=== PATIENT | female | born 1995 | race Caucasian/White ===

== ENCOUNTER 2023-02-05 15:40 | Emergency (ER) | payer MEDICAID, SELFPAY ==
[2023-02-05 15:51] VITALS: BP 132/90; PULSE 72; RESP 26; TEMP 36.3; O2SAT 99; BMI 34.6
--- NOTE | 2023-02-05 16:25 | ED.SOB ---
HPI - SOB/Dyspnea General Time Seen by Provider: 16:25 Date Seen: 02/05/23 Chief Complaint: Shortness of Breath/Dyspnea Stated Complaint: Difficulty breathing Time Seen by Provider: 02/05/23 16:15 Source: patient and RN notes reviewed Mode of arrival: ambulatory Limitations: no limitations History of Present Illness HPI Narrative: This 27-year-old female transitioning to male patient is coming in with chest pain throughout the sternal area associated with breathing. He feels short of breath. He was coming from a wedding in [place], started to feel short of breath and did not feel like he could make it home to his inhaler. He believes he was given inhaler after COVID or possibly for allergies. He states he has been having symptoms of this nature for months now. Does believe he likely has underlying seasonal allergies but they have never been this bad. Has not been diagnosed with asthma. Was sick with cough and cold symptoms about 3 weeks ago but reportedly improved. He does wear a binder on his chest every day but has been doing this since 2017, does wonder if this could have precipitated any issues. No fevers. Does endorse some heartburn but does not take any medicine for this. Does feel that the breathing does worsen at night. Does not smoke cigarettes but does smoke cannabis. MD elicited complaint: shortness of breath, pain with inspiration and chest pain Related Data Home oxygen amount: none Home Medications Medication Instructions Recorded Confirmed testosterone (AndroGel) 20.25 mg topical QAM 02/05/23 02/05/23 Review of Systems Status of ROS: Reports: 6 or more systems reviewed and unremarkable except as noted in History and below PFSH PFSH Social History Smoking Status: Never smoker Do you use any of these nicotine containing products: None How often do you have a drink containing alcohol: never How often do you have six or more drinks on one occasion: Never AUDIT-C Alcohol total score: 0 Non-prescribed substance use: marijuana (any form) Exam Const: Vital Signs, click to edit/add: Vital Signs - 24 hr 02/05/23 15:51 02/05/23 17:07 Temperature 97.4 F L Pulse Rate [Right Pulse Oximeter] 72 Respiratory Rate 26 H Blood Pressure [Le ft Upper Arm] 132/90 H Pulse Oximetry 99 98 Oxygen Delivery Me thod Room Air He is a 27-year-old transitioning female to male patient that is seen in exam room 7. He does seem mildly anxious, mild tachypnea but voice is normal, able to speak in complete sentences, no hoarseness. No stridor, no wheezing that is audible. Sclera clear, symmetrical facial function. Neck supple, no masses, no jugular venous distension noted. Is able to sit up, lungs are clear, good air entry, no wheezing or crackles. CV regular rate and rhythm, no murmur, normal S1 and S2, no S3 or S4. Abdomen is soft, no rebound or guarding, no organomegaly, nontender and nondistended. No reproducible chest wall tenderness. Documenting provider has reviewed patient's vital signs: yes Course Course ED Course: This is a patient that certainly could have underlying airway disease such as asthma. Did recently have cough and cold symptoms, does wear a binder, could have secondary bacterial pneumonia setting in. Right now, patient is hemodynamically stable, will have nursing staff apply pulse oximetry so we can watch oxygenation, initial O2 sats are excellent on arrival. Will consider other etiologies such as possibly cardiac, certainly reflux could be contributing here as well. Will have nursing staff get an EKG. Will get a full complement of labs and will do a D-dimer. Will have patient try DuoNeb and see if he gets any relief from that. Reevaluation(s) Time of Reevaluation #1: 17:57 Reevaluation #1: Reviewed with patient that we are just awaiting the D-dimer result. If it comes back elevated, will proceed with chest CT PE protocol. Otherwise, reviewed that all other labs including troponin, CBC, chemistries are normal. The venous blood gas actually supported hyperventilation. They note that he felt better after the DuoNeb. Reauscultation of the lungs reveals same findings as before, do not hear any improved her better air entry. Patient still has the same lung exam as before the DuoNeb but does notably feel better. Did review with them that they should really consider doing further testing with formal pulmonary function testing to see if there really is asthma. If there is asthma, would be a candidate for preventative medication. Patient did bring up that his primary had prescribed Advair and did not start it. Vital Signs Vital signs: Initial Vital Signs Temperature 97.4 F L 02/05/23 15:51 Temperature Source Temporal Artery Scan 02/05/23 15:51 Pulse Rate 72 10/13/23 15:51 Pulse Rhythm Regular 02/05/23 15:51 Respiratory Rate 26 H 02/05/23 15:51 Blood Pressure 132/90 H 02/05/23 15:51 Blood Pressure Mean 104 02/05/23 15:51 Blood Pressure Position Sitting 02/05/23 15:51 Pulse Oximetry 99 02/05/23 15:51 Oxygen Delivery Method Room Air 02/05/23 15:51 Vital Signs Temperature 97.4 F L 02/05/23 15:51 Pulse Rate 72 02/05/23 15:51 Respiratory Rate 26 H 02/05/23 15:51 Blood Pressure 132/90 H 02/05/23 15:51 Pulse Oximetry 99 02/05/23 15:51 Oxygen Delivery Method Room Air 02/05/23 15:51 Temperature 97.4 F L 02/05/23 15:51 Pulse Rate 72 02/05/23 15:51 Respiratory Rate 26 H 02/05/23 15:51 Blood Pressure 132/90 H 02/05/23 15:51 Pulse Oximetry 98 02/05/23 17:07 Oxygen Delivery Method Room Air 02/05/23 15:51 MDM - SOB/Dyspnea Lab Data Attestation: I reviewed the patient's lab results. Labs: Lab Results 02/05/23 Range/Units 16:45 WBC 7.30 (4.50-11.00) K/uL RBC 4.71 (4.00-5.20) m/uL Hgb 13.9 (12.0-16.0) gm/dL Hct 40.9 (33.0-51.0) % MCV 87 (80-100) fL MCH 30 (26-34) pg MCHC 34 (32-36) gm/dL RDW Coeff of Lilia 12.1 (11.5-15.5) % Plt Count 383 (140-440) K/uL Neut % (Auto) 56.0 (42.0-72.0) % Lymph % (Auto) 31.1 (20-44) % Pike % (Auto) 7.7 (0.0-11.0) % Eos % (Auto) 4.1 (0.0-7.0) % Baso % (Auto) 1.0 (0.0-3.0) % Neut # (Auto) 4.09 (1.7-7.0) K/uL Lymph # (Auto) 2.27 (0.90-2.90) K/uL Pike # (Auto) 0.60 (0.00-0.90) K/UL Eos # (Auto) 0.30 (0.00-0.50) K/uL Baso # (Auto) 0.07 (0.00-0.30) K/uL Abs Immat Gran (auto) 0.01 (0.00-0.30) K/uL Imm/Tot Granulo (auto) 0.1 % D-Dimer Quant (PE/DVT) < 0.27 (0.00-0.50) ug/ml VBG pH 7.454 H (7.32-7.43) VBG pCO2 36 L (40-50) mmHG VBG pO2 29.4 (25-47) mmHG VBG HCO3 25 (21-28) mmol/L Sodium 138 (135-149) mmol/L Potassium 3.6 (3.6-5.1) mmol/L Chloride 106 (96-114) mmol/L Carbon Dioxide 23 (20-32) mmol/L Anion Gap 9 (7-15) mEq/L BUN 12 (5-24) mg/dL Creatinine 0.7 (0.5-1.5) mg/dL Estimated Creat Clear 97.17 Estimated GFR 123 ml/min Glucose 72 (60-115) mg/dL Calcium 9.2 (8.4-10.6) mg/dL C-Reactive Protein 0.9 (0.5-1.0) mg/dL POC Troponin I 0.00 L (0.01-0.04) ng/ml Imaging Data Chest x-ray: Attestation: I have reviewed the pertinent imaging results. My impression: No acute pathology on my preliminary review of this chest x-ray, await Radiology over-read. Radiologist's impression: Patient: JACOBY GLASS Facility:?[facility] Patient ID:?[id number] Site Patient ID:?[id number]. Site :?[id number] Study:?XRay Chest 2V-02/05/2023 5:15:29 PM Ordering Physician:Steff Lambert Final Report: INDICATION: sob, dyspnea TECHNIQUE: Chest 2 views. COMPARISON: None. FINDINGS: Cardiovascular and mediastinum: Heart size and vasculature are normal in caliber and appearance. Lungs and pleural spaces: Lungs are clear. No sign of infiltrate. No sign of pleural effusion. No pneumothorax. Bones and soft tissues: No significant findings. IMPRESSION: No evidence of acute cardiopulmonary process. Dictated by Jarvis Roman MD @ 02/05/2023 5:44:35 PM (Electronic Signature) ECG Data Attestation: I personally reviewed and interpreted this ECG as follows: (Sinus rhythm, 65 beats per minute. No ischemic change, some artifact. QT corrected 420 milliseconds.) ECG interpretation date: 02/05/23 ECG interpretation time: 16:38 Prior ECG tracings: not available for review Discharge Plan Discharge Clinical Impression: Shortness of breath Patient Disposition: Home, Self-Care Condition: Stable Instructions: Asthma (ED), Shortness of Breath (ED) Additional Instructions: Can use your inhaler at home with return of symptoms. Do recommend follow-up with your primary clinic within the next week. I believe that you should have formal pulmonary function testing done if you have not done so to look at the possibility of underlying lung disease, confirm asthma if that is the suspicion. Could also consider being referred to an outbound supervisor for potential allergen testing if considered appropriate. If at any point you have increased concerns, feel your symptoms are worsening in are not responsive to the inhaler, do recommend re-evaluation. There is no evidence any pneumonia on the chest x-ray. EKG and heart enzyme, D-dimer and other labs were all within normal limits. Activity Level: Activity as Tolerated Prescriptions: No Action testosterone [AndroGel] 20.25 mg/1.25 gram (1.62 %) gel in metered-dose pump 20.25 mg topical QAM Rx Instructions: apply 1 pump amount over max area of ONE upper arm and shoulder Follow Up/Referrals: Provider,Not a Local [Primary Care Provider] - Stand Alone Forms: [id number] Info Instructions
--- NOTE | 2023-02-05 16:32 | CRLHL7_ITS ---
For Patients: As a result of the Cures Act, medical imaging exams and procedure reports are released immediately into your electronic medical record. You may view this report before your referring provider. If you have questions, please contact your health care provider. INDICATION: sob, dyspnea TECHNIQUE: Chest 2 views. COMPARISON: None. FINDINGS: Cardiovascular and mediastinum: Heart size and vasculature are normal in caliber and appearance. Lungs and pleural spaces: Lungs are clear. No sign of infiltrate. No sign of pleural effusion. No pneumothorax. Bones and soft tissues: No significant findings. IMPRESSION: No evidence of acute cardiopulmonary process. Dictated by Jarvis Roman MD @ 02/05/2023 5:44:35 PM (Electronically Signed)
[2023-02-05] MEDS: IPRAT-ALBUT 0.5-2.5 MG/3 ML NEB 1 NEB IH (16:49)
[2023-02-05 16:54] LABS: HCO3 VBG 25 mmol/L (21-28); PCO2 VBG 36 mmHG (40-50); PO2 VBG 29.4 mmHG (25-47); pH VBG 7.454 (7.32-7.43)
[2023-02-05 17:02] LABS: Basophils Absolute Auto 0.07 K/uL (0.00-0.30); Eosinophils Percent Auto 4.1 % (0.0-7.0); Hematocrit 40.9 % (33.0-51.0); Hemoglobin* 13.9 gm/dL (12.0-16.0); Immature Granulocytes Abs Auto 0.01 K/uL (0.00-0.30); Immature Granulocytes Pct Auto 0.1 %; Lymphocytes Absolute Auto 2.27 K/uL (0.90-2.90); Lymphocytes Percent Auto 31.1 % (20-44); Mean Corpuscular HGB Conc 34 gm/dL (32-36); Mean Corpuscular Hemoglobin 30 pg (26-34); Mean Corpuscular Volume 87 fL (80-100); Monocytes Percent Auto 7.7 % (0.0-11.0); Neutrophils Absolute Auto 4.09 K/uL (1.7-7.0); Platelet Count* 383 K/uL (140-440); RDW Coefficient of Variation % 12.1 % (11.5-15.5); Red Blood Count 4.71 m/uL (4.00-5.20)
--- NOTE | 2023-02-05 17:04 | ED.NURSE ---
pt reports having an easier time breathing after administration of neb.
[2023-02-05 17:05] LABS: Slide Review Reflex No
[2023-02-05 17:07] VITALS: O2SAT 98
[2023-02-05 17:16] LABS: Chloride* 106 mmol/L (96-114); Potassium* 3.6 mmol/L (3.6-5.1); Sodium* 138 mmol/L (135-149)
[2023-02-05 17:19] LABS: Anion Gap 9 mEq/L (7-15); Blood Urea Nitrogen* 12 mg/dL (5-24); Carbon Dioxide* 23 mmol/L (20-32); Creatinine* 0.7 mg/dL (0.5-1.5); Est. Creatinine Clearance* 97.17; Estimated Glomerular Filt Rate 123 ml/min
[2023-02-05 17:20] LABS: Calcium* 9.2 mg/dL (8.4-10.6); Glucose* 72 mg/dL (60-115)
[2023-02-05 17:22] LABS: C Reactive Protein* 0.9 mg/dL (0.5-1.0)
[2023-02-05 17:55] LABS: D Dimer Quantitative* < 0.27 ug/ml (0.00-0.50)
== END 2023-02-05 18:17 | disposition home or self-care (01) ==
PROVIDERS: Emergency Provider Family Medicine
DX: R06.02 Shortness of breath (principal)
CPT/HCPCS: 36415; 71046; 80048; 82803; 84484; 85025; 85379; 86140; 93005; 94640; 94761; 99284; 99285

== ENCOUNTER 2023-04-01 15:51 | Emergency (ER) | payer OTHER, MEDICAID, SELFPAY ==
[2023-04-01 16:03] VITALS: BP 127/84; PULSE 60; RESP 18; TEMP 36.8; O2SAT 98; BMI 33.8
--- NOTE | 2023-04-01 17:44 | ED.HEATRA ---
HPI - Head Injury General Date Seen: 04/01/23 Chief complaint: Head Injury/Pain Stated complaint: concussion Time Seen by Provider: 04/01/23 16:58 Source: patient Mode of arrival: ambulatory Limitations: no limitations History of Present Illness HPI Narrative: Patient is 28-year-old presenting to the emergency department after hitting his head on a steel bar at work. He states he still too fast hitting his head. After that he felt dizzy and lightheaded with some nausea and headache behind his left eye. Symptoms have all resolved now it then the nausea. States he has had few concussions in the past and the symptoms do not feel as bad. Denies weakness, numbness, vision changes, abdominal pain, diarrhea, constipation. He does feel nauseated but has not vomited. No other concerns at this time Related Data Home Medications Medication Instructions Recorded Confirmed testosterone (AndroGel) 20.25 mg topical QAM 02/05/23 02/05/23 Previous Rx's Medication Instructions Recorded ondansetron 4 mg disintegrating 4 mg PO Q6H #20 tabs 04/01/23 tablet Allergies Allergy/AdvReac Type Severity Reaction Status Date / Time No Known Drug Allergies Allergy Verified 04/01/23 16:06 Review of Systems Status of ROS: Reports: 10 or more systems reviewed and unremarkable except as noted in History and below PFSH PFS Social History Smoking Status: Never smoker Do you use any of these nicotine containing products: None How often do you have a drink containing alcohol: never How often do you have six or more drinks on one occasion: Never AUDIT-C Alcohol total score: 0 Non-prescribed substance use: marijuana (any form) Exam Narrative: Exam Narrative: Const: Well-nourished, Well-developed, in mild distress Eyes: PERRL, no conjunctival injection, and symmetrical lids HENT: Atraumatic external nose and ears. Moist mucous membranes. Neck: Symmetric, trachea midline, No thyromegaly. CVS: RRR, No murmurs or gallops. Peripheral pulses 2+ and equal in all extremities RESP: Unlabored respiratory effort. Clear to auscultation bilaterally. GI: Nontender/Nondistended, No rebound or guarding. MSK:Extremities w/o deformity, Normal Active ROM Skin: Warm, Dry. No rashes or lesions. Neuro: Normal Muscle tone, Cranial nerves 2-12 grossly intact, normal [id number], normal [id number], normal gait, normal strength 5/5 upper lower extremities bilaterally, normal sensation upper and lower extremities bilaterally, normal rapid alternating movements. Psych: Awake, Alert, & Oriented x3. Appropriate mood and affect. Const: Vital Signs, click to edit/add: Vital Signs - 24 hr 04/01/23 16:03 Temperature 98.2 F Pulse Rate [Pulse Oximeter] 60 Respiratory Rate 18 Blood Pressure [Ri ght Upper Arm] 127/84 Pulse Oximetry 98 Oxygen Delivery Me thod Room Air Course Vital Signs Vital signs: Initial Vital Signs Temperature 98.2 F 04/01/23 16:03 Temperature Source Temporal Artery Scan 04/01/23 16:03 Pulse Rate 60 04/01/23 16:03 Respiratory Rate 18 04/01/23 16:03 Blood Pressure 127/84 04/01/23 16:03 Blood Pressure Mean 98 04/01/23 16:03 Blood Pressure Position Sitting 04/01/23 16:03 Pulse Oximetry 98 04/01/23 16:03 Oxygen Delivery Method Room Air 04/01/23 16:03 Vital Signs Temperature 98.2 F 04/01/23 16:03 Pulse Rate 60 04/01/23 16:03 Respiratory Rate 18 04/01/23 16:03 Blood Pressure 127/84 04/01/23 16:03 Pulse Oximetry 98 04/01/23 16:03 Oxygen Delivery Method Room Air 04/01/23 16:03 Temperature 98.2 F 04/01/23 16:03 Pulse Rate 60 04/01/23 16:03 Respiratory Rate 18 04/01/23 16:03 Blood Pressure 127/84 04/01/23 16:03 Pulse Oximetry 98 04/01/23 16:03 Oxygen Delivery Method Room Air 04/01/23 16:03 MDM - Head Injury MDM Narrative Medical decision making narrative: Patient is a 28-year-old presents emergency department after closed head injury. Symptoms sound like he might have give himself a concussion. He states he has had concussions in the past and they are much more serious this time. Only symptom left now is nausea. He had a completely normal neurological exam. Not believe head imaging is necessary at this time. Patient be given Zofran and discharged home. He is agreeable to this plan. Discharge Plan Discharge Clinical Impression: Concussion without loss of consciousness Qualifiers: Encounter type: initial encounter Qualified Code(s): S06.0X0A - Concussion without loss of consciousness, initial encounter Patient Disposition: Home, Self-Care Condition: Stable Instructions: Concussion (ED) Additional Instructions: Use Zofran as needed for nausea. If you develops any new neurological symptoms return to the emergency department to be re-evaluated. If your symptoms persist you should follow up with the primary care provider. Prescriptions: New ondansetron 4 mg tablet,disintegrating 4 mg PO Q6H Qty: 20 0RF No Action testosterone [AndroGel] 20.25 mg/1.25 gram (1.62 %) gel in metered-dose pump 20.25 mg topical QAM Rx Instructions: apply 1 pump amount over max area of ONE upper arm and shoulder Follow Up/Referrals: Provider,Not a Local [Primary Care Provider] - Stand Alone Forms: Content Ramen Info Instructions
[2023-04-01 18:00] VITALS: BP 122/80; PULSE 68; RESP 18
[2023-04-01] MEDS: ONDANSETRON ODT 4 MG TAB PO (18:00)
== END 2023-04-01 18:06 | disposition home or self-care (01) ==
LOC: ED 18:05
PROVIDERS: Emergency Provider Student in an Organized Health Care Education/Training Program
DX: S06.0X0A Concussion without loss of consciousness, initial encounter (principal); W22.8XXA Striking against or struck by other objects, initial encounter
CPT/HCPCS: 99282; 99283; A9270